=== PATIENT | male | born 1980 | race Hispanic/Latino ===

== ENCOUNTER 2023-01-25 06:17 | Emergency (ER) | payer MEDICAID ==
[~2023-01-25] VITALS: Ht 180.3 cm; Wt 120.2 kg
[2023-01-25] MEDS ORDERED: ONDANSETRON 4MG INJ IVP ONE ×2 (06:30→10:00)
[2023-01-25 06:45] LABS: BASOPHILS # (AUTO) 0.05 K/uL (0.00-0.20); BASOPHILS % (AUTO) 0.6 % (0.0-5.0); EOSINOPHILS # (AUTO) 0.13 K/uL (0.00-0.70); EOSINOPHILS % (AUTO) 1.5 % (0.0-8.0); IMMATURE GRANULOCYTE ABSOLUTE 0.03 K/uL (0-1); LYMPHOCYTES % (AUTO) 22.5 % (21.0-51.0); MEAN CORPUSCULAR HEMOGLOBIN 27.9 pg (27.0-33.0); MEAN CORPUSCULAR VOLUME 84.8 fL (79-99); MONOCYTES # (AUTO) 1.2 K/uL (0.1-1.0); MONOCYTES % (AUTO) 13.2 % (3.0-13.0); NEUTROPHILS # (AUTO) 5.4 K/uL (1.8-7.7); NEUTROPHILS % (AUTO) 61.9 % (40.0-77.0); PLATELET COUNT (AUTO) 286 K/uL (130-400); RED BLOOD CELL COUNT(AUTO) 5.19 MIL/uL (4.50-6.20); WHITE BLOOD COUNT (AUTO) 8.7 K/uL (4.8-10.8)
[2023-01-25 06:47] LABS: APPEARANCE,URINE CLEAR (CLEAR); BILIRUBIN,URINE NEGATIVE (NEGATIVE); COLOR,URINE LIGHT-YELLOW (YELLOW); GLUCOSE, URINE (UA) NEGATIVE (NEGATIVE); KETONES,URINE NEGATIVE (NEGATIVE); LEUKOCYTE ESTERASE ,URINE NEGATIVE Leu/uL (NEGATIVE); NITRATE,URINE NEGATIVE (NEGATIVE); OCCULT BLOOD,URINE NEGATIVE (NEGATIVE); PH,URINE 5.5 (5.0-8.0); PROTEIN,URINE 20 mg/dL (NEGATIVE); UROBILINOGEN,URINE 0.2 mg/dL (0.2-1.0)
[2023-01-25 07:06] LABS: ALBUMIN 3.6 g/dL (3.5-5.0); BILIRUBIN,TOTAL 0.4 mg/dL (0.2-1.0); CREATININE 1.1 mg/dL (0.5-1.5); POTASSIUM 3.8 mmol/L (3.5-5.1); TOTAL PROTEIN, SERUM 7.8 g/dL (6.0-8.3)
[2023-01-25 07:08] LABS: ADD UA MICROSCOPIC YES
[2023-01-25 07:12] LABS: MUCUS,URINE RARE LPF (None Seen); RBC,URINE 0-1 /HPF (0-1); WBC,URINE 0-1 /HPF (0-1)
[2023-01-25 07:34] LABS: B-TYPE NATRIURETIC PEPTIDE < 5 pg/mL (0-100)
[2023-01-25] MEDS ORDERED: IOHEXOL 350 MG/ML 100ML INFUS..BTL IV ONE (10:57)
[2023-01-25] MEDS ORDERED: ONDA4TAB10 PO (12:38)
[2023-01-25] MEDS ORDERED: DICY20TA2 PO (12:38)
[2023-01-25] MEDS ORDERED: IBUP-2070 PO (12:38)
[2023-01-25 12:56] VITALS: BP 133/65; PULSE 75; RESP 18; O2SAT 98
== END 2023-01-25 13:00 | disposition home or self-care (01) ==
LOC: EDH 06:17
DX: K80.50 Calculus of bile duct without cholangitis or cholecystitis without obstruction (principal); K80.20 Calculus of gallbladder without cholecystitis without obstruction; E78.00 Pure hypercholesterolemia, unspecified
CPT/HCPCS: 99285; 96374; 71270; 76705; 71045; 82550; 84484; 80053; 83880; 83690; 85025; 85378; 81001; 36415; 96376; 93005; J2405 ×2; Q9967

== ENCOUNTER 2023-10-15 09:10 | Emergency (ER) | payer MEDICAID ==
[~2023-10-15] VITALS: Ht 180.3 cm; Wt 113.4 kg
[~2023-10-15 09:10] MED LIST: DICY20TA2 PO; IBUP-2070 PO; ONDA-243 PO
[2023-10-15 09:28] VITALS: O2SAT 99
[2023-10-15 09:31] LABS: HEMATOCRIT 46.9 % (42-54); MEAN CORPUSCULAR HEMOGLOBIN 27.4 pg (27.0-33.0); MEAN CORPUSCULAR HGB CONC 32.6 g/dL (32.0-36.0); MEAN CORPUSCULAR VOLUME 83.9 fL (79-99); PLATELET COUNT (AUTO) 271 K/uL (130-400); RED BLOOD CELL COUNT(AUTO) 5.59 MIL/uL (4.50-6.20); RED CELL DISTRIBUTION WIDTH 14.4 % (11.0-15.5); WHITE BLOOD COUNT (AUTO) 7.8 K/uL (4.8-10.8)
[2023-10-15 09:38] LABS: APPEARANCE,URINE CLEAR (CLEAR); BILIRUBIN,URINE NEGATIVE (NEGATIVE); COLOR,URINE LIGHT-YELLOW (YELLOW); GLUCOSE, URINE (UA) NEGATIVE (NEGATIVE); KETONES,URINE NEGATIVE (NEGATIVE); LEUKOCYTE ESTERASE ,URINE NEGATIVE Leu/uL (NEGATIVE); NITRATE,URINE NEGATIVE (NEGATIVE); OCCULT BLOOD,URINE NEGATIVE (NEGATIVE); PH,URINE 5.5 (5.0-8.0); PROTEIN,URINE NEGATIVE (NEGATIVE); UROBILINOGEN,URINE 0.2 mg/dL (0.2-1.0)
[2023-10-15 09:42] LABS: ADD UA MICROSCOPIC NO
[2023-10-15] MEDS: ONDANSETRON 4MG INJ IVP ONE (09:52)
[2023-10-15] MEDS: KETOROLAC 30MG VIAL (30MG/ML) IVP ONE (09:52)
[2023-10-15 09:59] LABS: BASOPHILS # (AUTO) 0.05 K/uL (0.00-0.20); BASOPHILS % (AUTO) 0.6 % (0.0-5.0); EOSINOPHILS # (AUTO) 0.15 K/uL (0.00-0.70); EOSINOPHILS % (AUTO) 1.9 % (0.0-8.0); IMMATURE GRANULOCYTE ABSOLUTE 0.03 K/uL (0-1); LYMPHOCYTES # (AUTO) 2.4 K/uL (1.0-4.8); LYMPHOCYTES % (AUTO) 30.5 % (21.0-51.0); MONOCYTES # (AUTO) 0.8 K/uL (0.1-1.0); MONOCYTES % (AUTO) 9.4 % (3.0-13.0); NEUTROPHILS # (AUTO) 4.6 K/uL (1.8-7.7); NEUTROPHILS % (AUTO) 57.2 % (40.0-77.0)
[2023-10-15 10:12] LABS: ALANINE AMINOTRANSFERASE 25 U/L (12-78); ALBUMIN 3.6 g/dL (3.5-5.0); ASPARTATE AMINOTRANSFERASE 19 U/L (10-37); BILIRUBIN,DIRECT < 0.1 mg/dL (0.0-0.3)
[2023-10-15 10:24] LABS: BILIRUBIN,TOTAL 0.4 mg/dL (0.2-1.0); TOTAL PROTEIN, SERUM 7.6 g/dL (6.0-8.3)
[2023-10-15] MEDS ORDERED: HYOS0.124 SL (10:53)
[2023-10-15] MEDS ORDERED: ONDA-104 PO (10:53)
[2023-10-15 11:02] VITALS: BP 127/84; PULSE 80; RESP 16
== END 2023-10-15 11:14 | disposition home or self-care (01) ==
LOC: EDH 09:10
DX: K80.70 Calculus of gallbladder and bile duct without cholecystitis without obstruction (principal); K80.50 Calculus of bile duct without cholangitis or cholecystitis without obstruction; F32.A Depression, unspecified; F41.9 Anxiety disorder, unspecified; Z79.899 Other long term (current) drug therapy; Z90.5 Acquired absence of kidney; Z98.890 Other specified postprocedural states
CPT/HCPCS: 99285; 74176; 96374; 76705; 96375; 80076; 80048; 83690; 85025; 81003; 36415; 93005; J2405; J1885

== ENCOUNTER 2023-10-22 12:56 | Emergency (ER) | payer MEDICAID ==
[~2023-10-22] VITALS: Ht 180.3 cm; Wt 113.4 kg
[~2023-10-22 12:56] MED LIST changes: +HYOS0.124 SL; +ONDA-104 PO
[2023-10-22 13:21] LABS: APPEARANCE,URINE CLEAR (CLEAR); BILIRUBIN,URINE NEGATIVE (NEGATIVE); COLOR,URINE YELLOW (YELLOW); GLUCOSE, URINE (UA) NEGATIVE (NEGATIVE); KETONES,URINE 5 mg/dL (NEGATIVE); LEUKOCYTE ESTERASE ,URINE NEGATIVE Leu/uL (NEGATIVE); NITRATE,URINE NEGATIVE (NEGATIVE); OCCULT BLOOD,URINE NEGATIVE (NEGATIVE); PH,URINE 5.5 (5.0-8.0); PROTEIN,URINE 30 mg/dL (NEGATIVE); UROBILINOGEN,URINE 0.2 mg/dL (0.2-1.0)
[2023-10-22 13:22] LABS: ADD UA MICROSCOPIC YES
[2023-10-22 13:23] LABS: MUCUS,URINE RARE LPF (None Seen); RBC,URINE 0-1 /HPF (0-1); SQUAMOUS EPITHELIAL CELL,UR RARE /HPF (0-2)
[2023-10-22 13:34] LABS: BASOPHILS # (AUTO) 0.04 K/uL (0.00-0.20); BASOPHILS % (AUTO) 0.5 % (0.0-5.0); EOSINOPHILS # (AUTO) 0.14 K/uL (0.00-0.70); EOSINOPHILS % (AUTO) 1.8 % (0.0-8.0); IMMATURE GRANULOCYTE ABSOLUTE 0.03 K/uL (0-1); LYMPHOCYTES # (AUTO) 2.4 K/uL (1.0-4.8); LYMPHOCYTES % (AUTO) 30.8 % (21.0-51.0); MEAN CORPUSCULAR HGB CONC 32.8 g/dL (32.0-36.0); MEAN CORPUSCULAR VOLUME 82.5 fL (79-99); MONOCYTES # (AUTO) 0.9 K/uL (0.1-1.0); MONOCYTES % (AUTO) 11.2 % (3.0-13.0); NEUTROPHILS # (AUTO) 4.4 K/uL (1.8-7.7); NEUTROPHILS % (AUTO) 55.3 % (40.0-77.0); PLATELET COUNT (AUTO) 298 K/uL (130-400); RED CELL DISTRIBUTION WIDTH 14.4 % (11.0-15.5); WHITE BLOOD COUNT (AUTO) 7.9 K/uL (4.8-10.8)
[2023-10-22] MEDS: ONDANSETRON 4MG INJ IVP ONE (13:40)
[2023-10-22] MEDS: ketOROlac 30MG VIAL (30MG/ML) IVP ONE (13:40)
[2023-10-22 13:41] LABS: CREATININE 1.1 mg/dL (0.5-1.3); POTASSIUM 3.6 mmol/L (3.5-5.1)
[2023-10-22 13:52] LABS: ALBUMIN 3.9 g/dL (3.5-5.0)
[2023-10-22] MEDS: 0.9%NACL 1000ML 1,000 ML IV ONE (14:13)
[2023-10-22 17:26] VITALS: BP 126/80; PULSE 62; RESP 14; TEMP 98.4; O2SAT 99
== END 2023-10-22 17:27 | disposition home or self-care (01) ==
LOC: EDH 12:56
DX: K80.20 Calculus of gallbladder without cholecystitis without obstruction (principal); K80.50 Calculus of bile duct without cholangitis or cholecystitis without obstruction; R11.2 Nausea with vomiting, unspecified; Z79.899 Other long term (current) drug therapy; Z85.528 Personal history of other malignant neoplasm of kidney; Z90.5 Acquired absence of kidney
CPT/HCPCS: 99285; 96374; 70450; 76705; 96361; 96375; 80053; 83690; 85025; 82272; 81001; 36415; J7030; J2405; J1885; 82270

== ENCOUNTER 2024-02-25 09:45 | Day surgery (SDC) | payer MEDICAID ==
[2024-02-24 12:32] VITALS: BP 152/85; PULSE 71; RESP 18; TEMP 98.2
[2024-02-24 12:35] LABS: BASOPHILS # (AUTO) 0.05 K/uL (0.00-0.20); BASOPHILS % (AUTO) 0.6 % (0.0-5.0); EOSINOPHILS # (AUTO) 0.08 K/uL (0.00-0.70); EOSINOPHILS % (AUTO) 0.9 % (0.0-8.0); HEMATOCRIT 48.6 % (42-54); IMMATURE GRANULOCYTE ABSOLUTE 0.02 K/uL (0-1); LYMPHOCYTES # (AUTO) 1.7 K/uL (1.0-4.8); MEAN CORPUSCULAR HEMOGLOBIN 28.2 pg (27.0-33.0); MEAN CORPUSCULAR HGB CONC 33.1 g/dL (32.0-36.0); MEAN CORPUSCULAR VOLUME 85.1 fL (79-99); MONOCYTES # (AUTO) 0.8 K/uL (0.1-1.0); MONOCYTES % (AUTO) 8.8 % (3.0-13.0); NEUTROPHILS % (AUTO) 69.5 % (40.0-77.0); PLATELET COUNT (AUTO) 319 K/uL (130-400); RED BLOOD CELL COUNT(AUTO) 5.71 MIL/uL (4.50-6.20); RED CELL DISTRIBUTION WIDTH 14.4 % (11.0-15.5); WHITE BLOOD COUNT (AUTO) 8.6 K/uL (4.8-10.8)
--- NOTE | 2024-02-24 12:44 | EKG ---
[facility] Test Date: 2024-02-24 Test Time: 13:15:05 Pat Name: CECILIA JIMENEZ Department: [facility] Room: Gender: Procurement Technician: [id number] : 1980 Requested By: DRE PEDROZA Order Number: [id number] Reading MD: Ivania Lara Measurements Intervals [place] Rate: 64 P: 41 [place]: 159 QRS: 49 QRSD: 100 T: 40 QT: 388 QTc: 402 Interpretive Statements Sinus rhythm ST elev, probable normal early repol pattern Compared to ECG 01/08/2024 08:05:13 No significant changes Electronically Signed On 02-25-2024 08:09:28 OSTOMY NURSE by Ivania Lara Please click the below link to view image of tracing.
[2024-02-24 12:48] LABS: POTASSIUM 4.3 mmol/L (3.5-5.1)
[~2024-02-25] VITALS: Ht 180.3 cm; Wt 110.9 kg
[2024-02-25] VITALS (15 sets, daily range): BP systolic 147–178; BP diastolic 71–92; PULSE 60–70; RESP 13–18; TEMP 97–97.6
[~2024-02-25 09:45] MED LIST changes: +ARIP5TAB51 PO; -DICY20TA2 PO; +DICY20TA3 PO; +ESCI5TAB16 PO; -HYOS0.124 SL; -IBUP-2070 PO; +OMEP40CA21 PO; -ONDA-104 PO; -ONDA-243 PO
[2024-02-25] MEDS ORDERED: acetaMINOPHEN 100 ML ONE (10:02)
[2024-02-25] MEDS ORDERED: FAMOTIDINE 20MG VIAL IV ONE (10:02)
[2024-02-25] MEDS ORDERED: LIDOCAINE PF 100MG/5ML (2%) SYRINGE 5ML ONE (10:10)
[2024-02-25] MEDS ORDERED: FENTanyl CITRate PF 50 MCG/1 ML 2ML VIAL ONE (10:11)
[2024-02-25] MEDS ORDERED: rocuRONium bROMide 10MG/1ML 5ML VL ONE (10:11)
[2024-02-25] MEDS ORDERED: proPOFol 10 MG/ML 20ML VIAL IV ONE (10:11)
[2024-02-25] MEDS ORDERED: MIDAZOLAM HCL 1 MG/ML 2ML VIAL ONE (10:13)
[2024-02-25] MEDS: ceFAZolin SODIUM 1 GM VIAL ONE (10:30)
[2024-02-25] MEDS: ceFAZolin SODIUM 2 GM VIAL ONE (10:30)
[2024-02-25] MEDS ORDERED: GLYCOPYRROLATE 0.2 MG/ML 5 ML VIAL ONE (10:34)
[2024-02-25] MEDS ORDERED: NEOSTIGMINE METHYLSULFATE 1MG/ML IV ONE (10:34)
[2024-02-25] MEDS ORDERED: dexaMETHasone SOD PHOSPHATE 10MG/ML 1ML VIAL ONE (10:34)
[2024-02-25] MEDS ORDERED: ondanSETRON 4MG INJ ONE (10:34)
[2024-02-25] MEDS: BUPIvacaine/PF 0.25% 30ML VIAL IJ ONE (10:38)
[2024-02-25] MEDS: IOHEXOL-350 50ML VIAL IV ONE (10:38)
[2024-02-25] MEDS: LACTATED RINGERS 1000ML 1,000 ML IV ONE (10:40)
--- NOTE | 2024-02-25 11:38 | OP ---
Operative Note: DATE OF PROCEDURE: 02/25/24 SURGEON: DRE PEDROZA MD RENEWABLE ENERGY CONSULTANT: [Please review operative record] ANESTHESIA: [General and local] ANESTHESIOLOGIST/JUMPBASTING FACING BASTER: [Please review operative record] PREOPERATIVE DIAGNOSIS: [Symptomatic cholelithiasis] POSTOPERATIVE DIAGNOSIS: [Symptomatic cholelithiasis, chronic cholecystitis] SYNOPSIS: [Chronically inflamed gallbladder, intraoperative cholangiogram performed with no intraductal filling defects, good flow into duodenum, no bile duct dilatation, good visualization of hepatic radicles.] PROCEDURE: [Laparoscopic cholecystectomy, intraoperative cholangiogram] ESTIMATED BLOOD LOSS: [20 cc] INDICATIONS: [Patient is a 43-year-old male with chronic right upper quadrant postprandial pain, multiple ED visits because of these issue. Ultrasound showing cholelithiasis and chronic cholecystitis. Patient failed medical management with pain control and dietary changes. Recommendation was given for surgical repair with cholecystectomy and intraoperative cholangiogram. Risks, benefits, alternatives were discussed with the patient. Patient had all his que stions answered. Patient agreed to proceed with procedure] DESCRIPTION OF PROCEDURE: [After appropriate consent was obtained, the patient was brought into the operating room and placed in supine position on the operating table. SCDs were placed, preop antibiotics were given. Patient underwent induction of general anesthesia, endotracheal intubation. Patient was then prepped and draped in the usual sterile fashion. Time-out was performed. Through a left subcostal incision, Veress needle was inserted into the peritoneal cavity. Insufflation was allowed to 12 mmHg. Through a epigastric 5 mm incision, laparoscope and trocar were inserted into the peritoneal cavity using Optiview. Veress needle and this vicinity were examined with no signs of injury. Rest of my trocars were all placed under direct visualization. Patient was positioned on slight reverse Trendelenburg with a slight left tilt position. Upon evaluation of the gallbladder, it appeared chronically inflamed. Omental adhesions were taken down using hook electrocautery. The gallbladder fundus was grasped and retracted cephalad, infundibulum was grasped and retracted l aterally. Dissection of Calot's triangle was accomplished using a combination of blunt and hook electrocautery. Once two structures were then identified, the cystic duct was clipped one time as close to the gallbladder. Ductotomy was performed using sharp scissors. Cholangiocatheter was advanced into the lumen. Cholangiogram was obtained. This showed no intraductal filling defects good flow into the duodenum. There was no ductal dilatation, good visualization of hepatic radicals. After confirmation of the cystic duct, this was clipped 3 times proximally and sharply divided. Cystic artery was clipped 2 times proximally and one time distally. And sharply divided. Gallbladder was then dissected off the gallbladder fossa using hook electrocautery. Hemostasis was achieved with the same. Once gallbladder was removed, it was removed from the peritoneal cavity using Endo-Catch bag. Final inspection revealed adequate hemostasis, no concerns for leakage. The 12 mm port was closed with 0 Vicryl suture through a suture Passer. Counts were correct at the end of the case. Abdomen was allowed to deflate. All instruments were removed. Incisions were closed with 4-0 Monocryl. Dermabond was applied over the incisions. Patient tolerated the procedure well. Patient was transferred to recovery in good condition.] DRE PEDROZA MD Feb 25, 2024 11:38
--- NOTE | 2024-02-25 11:41 | DS ---
Discharge Summary Hospital Course Patient is a 43-year-old male who was admitted from the outpatient setting for elective laparoscopic cholecystectomy with intraoperative cholangiogram on 02/25/2024 due to symptomatic cholelithiasis and chronic cholecystitis. There were no issues during the procedure. Patient tolerated the procedure well. Patient currently with no complaints. Remains hemodynamically stable, afebrile. Aerating well on room air. Normal sinus rhythm. Abdomen is benign, incisions are clean dry and intact. Appropriately tender to palpation. He will continue to recover in recovery, will be cleared to discharge per anesthesia. He will advance diet as able, no lifting more than 20 lb for a month. Postop follow up already in place. Postop meds have been submitted. Return precautions given including fevers of 101.5 or higher, worsening abdominal pain, intractable nausea and vomiting. DRE PEDROZA MD Feb 25, 2024 11:41
[2024-02-25] MEDS: metoCLOPRAmide 10 MG/2 ML VIAL ONE (11:55)
[2024-02-25] MEDS: ondanSETRON 4MG INJ ONE (11:55)
[2024-02-25] MEDS: ketOROlac 30MG VIAL (30MG/ML) ONE (12:03)
[2024-02-25] MEDS: MEPERIDINE-PF 25 MG/ML SYG ONE (12:09)
--- NOTE | 2024-02-25 12:59 | HMCIMG ---
CHOLANGIO &/OR PANCRE INTRAOPE REASON: LAP OLI W/ IOC'S. COMPARISON: None TECHNIQUE: Intraoperative cholangiogram study was performed. FINDINGS: Please see procedure report by referring physician. IMPRESSION: Intraoperative films.
--- NOTE | 2024-02-25 13:00 | NUR ---
Full and complete discharge instructions given to Patient and both verbally and in writing. All questions answered. Voiced understanding to Surgical precautions and new Prescriptions. Dermabond x 4 intact. Denies c/o pain or issue. Patient denies c/o pain or discomfort. Voided moderate amount of clear yellow urine. Some nausea but stated feeling better now. PIV removed with catheter tip intact. W/C to POV with to home.
== END 2024-02-25 13:00 | disposition home or self-care (01) ==
LOC: DAH 09:45
PROVIDERS: ATTEND Surgery
DX: K80.10 Calculus of gallbladder with chronic cholecystitis without obstruction (principal); I10 Essential (primary) hypertension; E78.5 Hyperlipidemia, unspecified; E11.9 Type 2 diabetes mellitus without complications; E66.9 Obesity, unspecified; R93.2 Abnormal findings on diagnostic imaging of liver and biliary tract; K21.9 Gastro-esophageal reflux disease without esophagitis; Z68.35 Body mass index [BMI] 35.0-35.9, adult; Z79.899 Other long term (current) drug therapy
CPT/HCPCS: 80048; 85025; 86850; 86900; 86901; 36415; 93005; 47563; 88304; 74300; A6260; J1885; A4663; J7120 ×2; A4215 ×2; C1758; J3010; J0690 ×2; J1100; J0665; J3490 ×3; J2003; J2250; J2405 ×2; J2710; J2175; J2765; Q9967; C1769 ×3; A4649 ×2; A4930; C1760; A4223; A4222; A4221; A4600; S0028; J2704

== ENCOUNTER 2024-06-23 02:54 | Emergency (ER) | payer SELFPAY ==
[~2024-06-23] VITALS: Ht 180.3 cm; Wt 116.6 kg
[~2024-06-23 02:54] MED LIST changes: -DICY20TA3 PO
--- NOTE | 2024-06-23 03:14 | ERN ---
General Chief Complaint: Headache Stated Complaint: C/O PAIN TO HEAD Time Seen by MD: 03:09 Source: patient History of Present Illness Initial Comments Woke up from sleep with a severe headache centered on his right temporal frontal region. He is status post nephrectomy and said that his oncologist has told him he can not take either Tylenol or Motrin one of the other he is not sure. He states he has recently started to drink alcohol. He has no other symptoms. No chest pain no shortness of breath no nausea no vomiting no upper respiratory tract infection. He did mention a little diarrhea. Allergies: Coded Allergies: No Known Allergies (Unverified Allergy, Unknown, 01/25/23) Home Meds Reported Medications Omeprazole (Omeprazole) 40 Mg Capsule.dr, 40 MG PO DAILY, CAP 02/24/24 Escitalopram Oxalate (Escitalopram Oxalate) 5 Mg Tablet, 5 MG PO DAILY, TAB 02/24/24 Aripiprazole (Aripiprazole) 5 Mg Tablet, 5 MG PO DAILY, TAB 02/24/24 Past Medical History Past Medical History: Anxiety, Other Medical History Other: LEFT KIDNEY CA (IN REMISSION) Past Surgical History: Cholecystectomy, Other Surgical History Other: LEFT NEPHRECTOMY Constitutional: (-) chills, (-) diaphoresis, (-) fever, (-) malaise, (-) weakness, (-) other documentation EENTM: (-) eye pain, (-) blurred vision, (-) tearing, (-) double vision, (-) ear pain, (-) ear discharge, (-) nose pain, (-) nose congestion, (-) throat pain, (-) Throat swelling, (-) mouth pain, (-) tooth pain, (-) mouth swelling, (-) other documentation Respiratory: (-) cough, (-) orthopnea, (-) short of breath, (-) stridor, (-) wheezing, (-) other documentation Cardiovascular: (-) chest pain, (-) edema, (-) palpitations, (-) syncope, (-) dyspnea on exertion, (-) other documentation Gastrointestinal/Abdominal: (+) diarrhea Musculoskeletal: (-) Neck pain, (-) back pain, (-) Flank Pain, (-) joint pain, (-) joint swelling, (-) muscle pain, (-) muscle stiffness, (-) gout, (-) other documentation Neuro: (-) altered mental status, (-) headache, (-) syncope, (-) paralysis, (-) numbness, (-) seizure, (-) pre-existing deficit, (-) tremors, (-) weakness, (-) dizziness, (-) slurred speech, (-) vertigo, (-) other documentation Physical Exam General Appearance: (+) mild distress Orientation: (+) oriented x 3 Head/Face Trauma: No Eye: bilateral eye normal inspection, bilateral eye PERRL, bilateral eye EOMI Ear, Nose, Throat: (+) hearing grossly normal, (+) normal ENT inspection, (+) normal pharynx Neck: (+) normal inspection, (+) supple, (+) full range of motion Respiratory: (+) well ventilated Heart: (+) regular, (+) no gallop Vascular: (+) no edema Gastrointestinal: (+) soft, (+) non-tender, (+) bowel sound present Results Laboratory and Microbiology Lab and Micro Result Laboratory Tests Test 06/23/24 03:22 White Blood Count 7.6 K/uL (4.8-10.8) Red Blood Count 5.13 MIL/uL (4.50-6.20) Hemoglobin 14.4 g/dL (14.0-18.0) Hematocrit 43.0 % (42-54) Mean Corpuscular Volume 83.8 fL (79-99) Mean Corpuscular Hemoglobin 28.1 pg (27.0-33.0) Mean Corpuscular Hemoglobin Concent 33.5 g/dL (32.0-36.0) Red Cell Distribution Width 13.9 % (11.0-15.5) Platelet Count 240 K/uL (130-400) Mean Platelet Volume 9.2 fL (7.5-10.5) Immature Granulocyte % (Auto) 0.3 % (0-1) Neutrophils (%) (Auto) 55.5 % (40.0-77.0) Lymphocytes (%) (Auto) 31.2 % (21.0-51.0) Monocytes (%) (Auto) 10.1 % (3.0-13.0) Eosinophils (%) (Auto) 2.1 % (0.0-8.0) Basophils (%) (Auto) 0.8 % (0.0-5.0) Neutrophils # (Auto) 4.2 K/uL (1.8-7.7) Lymphocytes # (Auto) 2.4 K/uL (1.0-4.8) Monocytes # (Auto) 0.8 K/uL (0.1-1.0) Eosinophils # (Auto) 0.16 K/uL (0.00-0.70) Basophils # (Auto) 0.06 K/uL (0.00-0.20) Absolute Immature Granulocyte (auto 0.02 K/uL (0-1) Nucleated Red Blood Cells 0.0 % (0.0-0.19) Sodium Level 143 mmol/L (136-145) Potassium Level 3.6 mmol/L (3.5-5.1) Chloride Level 109 mmol/L (101-111) Carbon Dioxide Level 31 mmol/L (21-32) Blood Urea Nitrogen 14 mg/dL (7-18) Creatinine 0.9 mg/dL (0.5-1.3) Glomerular Filtration Rate Calc 109 mL/min (>90) Random Glucose 106 mg/dL (70-105) H Total Calcium 8.0 mg/dL (8.5-10.1) L MDM 44-year-old male woke up with a headache pointing to his frontotemporal area. I will give him some extra strength Tylenol some IV fluids and some Flexeril to see if those relieve his pain. cbc, bmp as well. The patient has been sleeping comfortably since he came to the emergency room. His chemistry panel and CBC were normal. I feel no need to do a CT scan on this patient. He has no neurologic deficits. The way he describes a headache in the way he demonstrates it by rubbing his head is classic for either a dehydration headache or a tension headache. Patient says he feels better and would like to go home. ED Course Orders Procedure Category Date Status Time Cyclobenzaprine Hcl PHA 06/23/24 Complete (Cyclobenzaprine Hcl 03:30 Lactated Ringers PHA 06/23/24 Complete 1000ml (Lactated 03:14 Basic Metabolic Panel LAB 06/23/24 Complete 03:14 Cbc With Differential LAB 06/23/24 Complete 03:14 Acetaminophen 325 Tab PHA 06/23/24 Complete (Tylenol 325mg Tab 04:00 Current Medications Medications (Trade) Dose Ordered Sig/Candy Route PRN Reason Start Time Stop Time Status Last Admin Dose Admin Acetaminophen (TYLenol 325MG TAB) 650 mg ONCE ONCE PO 06/23/24 04:00 06/23/24 04:01 DC 06/23/24 03:52 Cyclobenzaprine HCl (Cyclobenzaprine HCl) 10 mg ONCE ONCE PO 06/23/24 03:30 06/23/24 03:31 DC 06/23/24 03:32 Lactated Ringer's (Lactated Ringers 1000ml) 1,000 ml BOLUS STAT IV 06/23/24 03:14 06/23/24 03:28 DC 06/23/24 03:32 Vital Signs Date Time Temp Pulse Resp B/P (MAP) Pulse Ox O2 Delivery O2 Flow Rate FiO2 06/23/24 02:56 98.2 68 20 151/93 97 Room Air DX & DISP Disposition: Discharge Departure Impression: Primary Impression: Headache Condition: Stable Additional Instructions: Stay well hydrated avoid caffeine. If you continue to have headaches please contact your primary care provider. Referrals: SELF,REFERRAL (PCP) SUBHASH BAUTISTA MD June 23, 2024 03:13
[2024-06-23 03:32] LABS: BASOPHILS # (AUTO) 0.06 K/uL (0.00-0.20); BASOPHILS % (AUTO) 0.8 % (0.0-5.0); EOSINOPHILS # (AUTO) 0.16 K/uL (0.00-0.70); EOSINOPHILS % (AUTO) 2.1 % (0.0-8.0); IMMATURE GRANULOCYTE ABSOLUTE 0.02 K/uL (0-1); LYMPHOCYTES # (AUTO) 2.4 K/uL (1.0-4.8); LYMPHOCYTES % (AUTO) 31.2 % (21.0-51.0); MEAN CORPUSCULAR HEMOGLOBIN 28.1 pg (27.0-33.0); MEAN CORPUSCULAR HGB CONC 33.5 g/dL (32.0-36.0); MEAN CORPUSCULAR VOLUME 83.8 fL (79-99); MONOCYTES # (AUTO) 0.8 K/uL (0.1-1.0); MONOCYTES % (AUTO) 10.1 % (3.0-13.0); NEUTROPHILS # (AUTO) 4.2 K/uL (1.8-7.7); NEUTROPHILS % (AUTO) 55.5 % (40.0-77.0); PLATELET COUNT (AUTO) 240 K/uL (130-400); RED BLOOD CELL COUNT(AUTO) 5.13 MIL/uL (4.50-6.20); RED CELL DISTRIBUTION WIDTH 13.9 % (11.0-15.5); WHITE BLOOD COUNT (AUTO) 7.6 K/uL (4.8-10.8)
[2024-06-23] MEDS: LACTATED RINGERS 1000ML IV STA (03:32)
[2024-06-23] MEDS: CYCLOBENZAPRINE HCL 10 MG TABLET PO ONE (03:32)
[2024-06-23 03:35] LABS: CREATININE 0.9 mg/dL (0.5-1.3); POTASSIUM 3.6 mmol/L (3.5-5.1)
[2024-06-23] MEDS: acetaMINOPHEN 325 MG TAB PO ONE (03:52)
[2024-06-23 05:48] VITALS: BP 142/85; PULSE 65; RESP 17; TEMP 98.6; O2SAT 98
== END 2024-06-23 05:50 | disposition home or self-care (01) ==
LOC: EDH 02:54
DX: R51.9 Headache, unspecified (principal); F41.9 Anxiety disorder, unspecified; Z79.899 Other long term (current) drug therapy; Z85.528 Personal history of other malignant neoplasm of kidney; Z90.49 Acquired absence of other specified parts of digestive tract; Z90.5 Acquired absence of kidney
CPT/HCPCS: 99283; 80048; 85025; 36415; J7120

== ENCOUNTER 2024-07-30 16:09 | Emergency (ER) | payer SELFPAY ==
[~2024-07-30] VITALS: Ht 180.3 cm; Wt 115.7 kg
[2024-07-30 16:13] VITALS: BP 150/84; PULSE 84; RESP 18; TEMP 98.2
--- NOTE | 2024-07-30 16:18 | ERN ---
ED Note History of Present Illness Stated Complaint: LEFT KNEE PAIN Chief Complaint: Knee Injury/Swelling Time Seen by MD: 16:10 Dictation: PATIENT IS A 44-YEAR-OLD MALE COMING IN TODAY WITH COMPLAINTS OF NON TRAUMA LEFT KNEE PAIN HE HAS HAD FOR SEVERAL DAYS NO FEVER NO CHILLS. HE DENIES ANY HISTORY OF TRAUMA OR PRIOR SURGERIES. STATES HE WENT TO GET A MASSAGE YESTERDAY ON HIS RIGHT KNEE AND THEY MASSAGE THE LEFT KNEE TWO AND IT NOW THE PAIN IS WORSE. HE HAS NO PRIMARY CARE DOCTOR. Allergies: Coded Allergies: No Known Allergies (Unverified Allergy, Unknown, 01/25/23) Home Meds Reported Medications Omeprazole (Omeprazole) 40 Mg Capsule.dr, 40 MG PO DAILY, CAP 02/24/24 Escitalopram Oxalate (Escitalopram Oxalate) 5 Mg Tablet, 5 MG PO DAILY, TAB 02/24/24 Aripiprazole (Aripiprazole) 5 Mg Tablet, 5 MG PO DAILY, TAB 02/24/24 Past Medical History Past Medical History: Anxiety, Other Additional Past Medical Hx: LEFT KIDNEY CA (IN REMISSION) Surgical History: Cholecystectomy, Other Surgical History Other: LEFT NEPHRECTOMY RN Note Reviewed/Agreed w/PFSH: Yes Review of System Dictation CONSTITUTIONAL: NEGATIVE EXCEPT FOR HPI HEAD/FACE: NEGATIVE EXCEPT FOR HPI EENT: NEGATIVE EXCEPT FOR HPI RESPIRATORY: NEGATIVE EXCEPT FOR HPI GASTROINTESTINAL/ABDOMINAL: NEGATIVE EXCEPT FOR HPI GENITOURINARY: NEGATIVE EXCEPT FOR HPI MUSCULOSKELETAL: NEGATIVE EXCEPT FOR HPI LEFT KNEE PAIN INTEGUMENTARY: NEGATIVE EXCEPT FOR HPI NEUROLOGICAL/PSYCH: NEGATIVE EXCEPT FOR HPI HEMATOLOGIC/LYMPHATIC: NEGATIVE EXCEPT FOR HPI ALL SYSTEMS NEGATIVE, EXCEPT NOTED ABOVE. 13 POINT REVIEW OF SYSTEMS ASSESSED AND ALL NEGATIVE EXCEPT FOR ABOVE. Initial Vital Sign VS Vital Signs Date Time Temp Pulse Resp B/P (MAP) Pulse Ox O2 Delivery O2 Flow Rate FiO2 07/30/24 16:13 98.2 84 18 150/84 98 Room Air 0 Physical Exam Dictation VITAL SIGNS REVIEWED GENERAL APPEARANCE: ALERT, ORIENTED X 3, MODERATE ACUTE DISTRESS, WELL DEVELOPED, NOURISHED. HEAD AND FACE: NON-TRAUMATIC. EYES: PERRL, PINK CONJUNCTIVAS, EYELID NO TRAUMA, ANTERIOR CHAMBER WITH ARCUS SENILIS. EARS: PINNAS INTACT AND NO SIGNS OF TRAUMA OR ERYTHEMA EAR CANALS CLEAR AND NO DISCHARGE TM NO ERYTHEMA NOSE: NO DISCHARGE, NO BLEEDING. OROPHARYNX: MOUTH NORMAL, TONGUE PINK, PHARYNX CLEAR,NO ERYTHEMA, TONSILS NO EXUDATES, NO ABSCESSES NOTED, MUCOUS MEMBRANE MOIST NECK: SUPPLE, NON-TENDER, NO THYROMEGALY, NO MASSES, NO JVD, NO BRUITS BREAST:DEFERRED CHEST:NO TENDERNESS, NO CREPITUS, NO PARADOXICAL MOVEMENT, NO RETRACTIONS LUNGS:CLEAR, WELL-VENTILATED, SYMMETRIC, NO RALES, NO WHEEZING, NO RHONCHI, NO STRIDOR, GOOD BREATH SOUNDS BILATERALLY HEART: REGULAR RATE, REGULAR RHYTHM, NO MURMUR, NO GALLOPS VASCULAR: NO PERIPHERAL EDEMA, ABDOMEN: SOFT, POSITIVE BOWEL SOUNDS, NONDISTENDED, NO GUARDING, NONTENDER, NO REBOUND, NO MASSES NO HEPATOMEGALY, NO SPLENOMEGALY, NO VACA'S SIGN, NO HERNIAS. RECTAL: DEFERRED GENITAL: DEFERRED NEUROLOGICAL: NORMAL SPEECH, MOTOR FUNCTION INTACT, SENSORY FUNCTION INTACT MUSCULOSKELETAL: NECK NONTENDER, FULL RANGE OF MOTION, BACK NONTENDER, FULL RANGE OF MOTION, EXTREMITIES: DIFFUSE LEFT KNEE TENDERNESS. NO EFFUSION DECREASED RANGE OF MOTION SECONDARY TO PAIN. NO CREPITATION SKIN: COLOR PINK, DRY, NO TURGOR, NO RASH, NO LACERATIONS, NO ABRASIONS, NO CONTUSIONS. LYMPHATIC: DEFERRED Results (Laboratory/Radiology) Laboratory/Radiology Left knee x-ray demonstrates proximal tibial lesions This information was provided to patient. Labs Reviewed?: Yes ED Course ED Course Orders Procedure Category Date Status Time Knee 3vws Lt RAD 07/30/24 Taken 16:14 Ibuprofen 800 Mg Tab PHA 07/30/24 Complete (Motrin) 16:30 Current Medications Medications (Trade) Dose Ordered Sig/Candy Route PRN Reason Start Time Stop Time Status Last Admin Dose Admin Ibuprofen (moTRIN) 800 mg ONCE ONCE PO 07/30/24 16:30 07/30/24 16:31 DC 07/30/24 16:29 Vital Signs Date Time Temp Pulse Resp B/P (MAP) Pulse Ox O2 Delivery O2 Flow Rate FiO2 07/30/24 16:13 98.2 84 18 150/84 98 Room Air 0 Medical Decision Making [facility] 1645/medical decision-making based on pain management and x-ray of left knee. Patient states he has a history of prior renal cancer and was treated Patient of Dr. Lam We will be given the name of Dr. Martinez and a have him follow up DX & DISP Disposition: Discharge Departure Impression: Primary Impression: Acute pain of left knee Condition: Stable Scripts Ibuprofen (Ibuprofen 800 mg Tab) 800 Mg Tab 800 MG PO Q8H PRN for fever or pain, #30 TAB 0 Refills Prov: DESTIN BAIN NP 07/30/24 Additional Instructions: Follow-up with primary care provider in 1 to 2 days. Take medications as directed here in the emergency room. Okay to continue home medications unless otherwise discussed during your visit in the emergency room today. Return to your nearest emergency room if symptoms worsen or if there is no improvement. Call [phone] if you need immediate assistance. Take Tylenol or Motrin [id number] as needed and if no contraindications are present. Increase oral hydration. A wound culture or urine culture was ordered here in the emergency room department please follow-up with primary care provider and advise them to get repeat ports from our facility. If you had any Damian wrap/splints that were applied here, please do not remove them until you see your primary care or specialty. Activity as tolerated. Take ibuprofen as needed for pain. Follow up with Orthopedics in the next 1-2 days Referrals: SELF,REFERRAL (PCP) CARLOS MARTINEZ MD Time of Disposition: 16:46 I have reviewed the case, and I agree with, Diagnosis and Plan DESTIN BAIN NP Jul 30, 2024 16:18
[2024-07-30] MEDS: ibuPROFEN 800 MG TAB PO ONE (16:29)
[2024-07-30] MEDS ORDERED: IBUP-2077 PO (16:47)
--- NOTE | 2024-07-30 16:50 | HMCIMG ---
KNEE 3VWS LT HISTORY: Trauma COMPARISON: None TECHNIQUE: 3 images of the left knee were obtained. FINDINGS: There is no acute displaced fracture or dislocation. Sclerotic oval-shaped density is seen in the metaphyseal portion of the proximal tibia. Degenerative changes are seen. IMPRESSION: 1. Findings as described above.
== END 2024-07-30 17:07 | disposition home or self-care (01) ==
LOC: EDH 16:09
DX: M25.562 Pain in left knee (principal); F41.9 Anxiety disorder, unspecified; Z79.899 Other long term (current) drug therapy; Z85.528 Personal history of other malignant neoplasm of kidney; Z90.49 Acquired absence of other specified parts of digestive tract; Z90.5 Acquired absence of kidney
CPT/HCPCS: 73562; 99283

== ENCOUNTER 2024-08-06 09:41 | Emergency (ER) | payer SELFPAY ==
[~2024-08-06] VITALS: Ht 180.3 cm; Wt 102.1 kg
[~2024-08-06 09:41] MED LIST changes: +IBUP-2077 PO
--- NOTE | 2024-08-06 10:51 | ERN ---
ED Note History of Present Illness Stated Complaint: LEFT KNEE PAIN CLEARNACE Chief Complaint: Knee Injury/Swelling Time Seen by MD: 10:28 Time Seen by Midlevel: 10:30 Dictation: 44-year-old male with a history of renal cell carcinoma coming in complaints of left knee pain. Patient states he was already seen here couple of days ago the x-ray showed something abnormal and was told to follow up with his oncologist. Patient however states he has not been able to follow up with the oncologist would like some pain management and some extended days off for work. No new injury. 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 Reported Medications Omeprazole (Omeprazole) 40 Mg Capsule.dr, 40 MG PO DAILY, CAP 02/24/24 Escitalopram Oxalate (Escitalopram Oxalate) 5 Mg Tablet, 5 MG PO DAILY, TAB 02/24/24 Aripiprazole (Aripiprazole) 5 Mg Tablet, 5 MG PO DAILY, TAB 02/24/24 Past Medical History Past Medical History: Anemia Additional Past Medical Hx: LEFT KIDNEY CA (IN REMISSION) Surgical History: Cholecystectomy Surgical History Other: LT KIDNEY Review of System Dictation Constitutional: Negative for fever,chills, and weight loss Eyes: Negative for injury, pain,redness, and discharge ENT: Negative for injury,pain or swelling Cardiovascular: Negative for chest pain, palpitations, and edema Respiratory: Negative for shortness of breath, cough, and wheezing, Abdomen/GI: Negative for abdominal pain, nausea, vomiting, diarrhea, and constipation Back: Negative for injury and pain : Negative for injury, bleeding and discharge MS/Extremity: Negative for injury and deformity Skin: Negative for rash, and discoloration Neuro: Negative for headache, weakness, numbness, tingling, and seizure Psych: Negative for suicide ideation, homicidal ideation, and hallucinations Review of Systems: was completed Initial Vital Sign VS Vital Signs Date Time Temp Pulse Resp B/P (MAP) Pulse Ox O2 Delivery O2 Flow Rate FiO2 08/06/24 09:44 98.6 79 18 99 0 08/06/24 11:27 135/79 Room Air* 21 Physical Exam Dictation General: awake, alert, NAD Head/Face: Normocephalic, atraumatic Eyes: PERRL, EOMI, vision at baseline ENT: oral cavity clear, TMs clear, no signs of infection Neck: Trachea midline, supple, no nuchal rigidity Cardiovascular: RRR, normal S1/S2, No MRGs, no JVD Respiratory: CTAB, no respiratory distress, No rales or wheezes Abdomen: Soft, non-tender, non-distended, normal bowel sounds, no guarding or rebound. Skin: Warm, dry, normal turgor, no rash MS/Extremity: Pulses equal, no cyanosis, neurovascular intact, FROM Neuro: COAx4, GCS 15, strength 5/5, CN 2-12 intact, normal cerebellar exam, normal gait, Psych: Normal behavior, mood, and affect normal ED Course ED Course Orders Procedure Category Date Status Time Hydrocodone/Apap PHA 08/06/24 Complete 5/325 (Moore 5/325mg) 10:42 Ketorolac PHA 08/06/24 Complete Tromethamine 15mg/Ml 10:42 Current Medications Medications (Trade) Dose Ordered Sig/Candy Route PRN Reason Start Time Stop Time Status Last Admin Dose Admin Acetaminophen/ Hydrocodone Bitart (NORco 5/325MG) 1 tab ONCE STAT PO 08/06/24 10:42 08/06/24 10:48 DC 08/06/24 11:34 Ketorolac Tromethamine (toRADol) 15 mg ONCE STAT IM 08/06/24 10:42 08/06/24 10:48 DC 08/06/24 11:34 Vital Signs Date Time Temp Pulse Resp B/P (MAP) Pulse Ox O2 Delivery O2 Flow Rate FiO2 08/06/24 11:27 97.9 74 18 135/79 98 Room Air* 0 21 08/06/24 09:44 98.6 79 18 99 0 Medical Decision Making MDM MDM: 44-year-old male with a history of renal cell carcinoma coming in complaints of left knee pain. Patient states he was already seen here couple of days ago the x-ray showed something abnormal and was told to follow up with his oncologist. Patient however states he has not been able to follow up with the oncologist would like some pain management and some extended days off for work. No new injury. Patient received pain medications in the hospital. Discussed with the patient that I can not clear him that he needs to follow up with PCP he needs to follow up with the oncologist for further imaging. Patient verbalized understanding, answered all questions. Differential diagnosis: Pain management, knee pain, Rationale: Tests considered and ordered secondary to shared decision making include: Previous outside records reviewed: Old ER visits. Risk of complication and/or morbidity or mortality of patient management: None Medications-Per medication reconciliation Need for hospitalization: Patient does not meet criteria for hospitalization. Need for emergency major/minor surgery: No There are no social concerns with this patient. Prescription drug management Prescriptions will include symptomatic care Patient's prior external medical records from other ER visits were reviewed by me as indicated. Prior testing and results from previous visits were reviewed. Prior tests were taken into account with medical decision making and resource utilization, independent historian/historians were used to obtain complete medical history. I independently interpreted the test that were performed, results were reviewed by me and considered findings on radiology if ordered. Medical management and examination interpretation discussions were had by me with other qualified healthcare professionals as indicated for the patient's care. DX & DISP Disposition: Discharge Departure Impression: Primary Impression: Acute pain of left knee Additional Impression: Abnormal x-ray of knee Condition: Stable Additional Instructions: PLEASE FOLLOW UP WITH YOUR ONCOLOGIST. YOUR XRAY SHOWS A SCLEROTIC OVAL SHAPED DENSITY IN THE PROXIMAL TIBIA. DUE TO YOUR CANCER HISTORY YOU NEED TO BE SEEN BY YOUR SPECIALIST THIS COULD BE A CANCEROUS. Referrals: SELF,REFERRAL (PCP) Time of Disposition: 10:51 I have reviewed the case, and I agree with, Diagnosis and Plan VERITO OLIVA NP Aug 06, 2024 10:51 BROOKE ALFARO DO Aug 09, 2024 04:10
[2024-08-06 11:27] VITALS: BP 135/79; PULSE 74; RESP 18; TEMP 97.8; O2SAT 98
[2024-08-06] MEDS: ketOROlac 15MG/ML VIAL (15MG/ML) IM STA (11:34)
[2024-08-06] MEDS: HYDROcodone/APAP 5/325 1 TAB TABLET PO STA (11:34)
== END 2024-08-06 11:41 | disposition home or self-care (01) ==
LOC: EDH 09:41
DX: M25.562 Pain in left knee (principal); Z79.899 Other long term (current) drug therapy; Z85.528 Personal history of other malignant neoplasm of kidney; Z90.49 Acquired absence of other specified parts of digestive tract
CPT/HCPCS: 99283; 96372; J1885

== ENCOUNTER 2024-11-10 11:23 | Emergency (ER) | payer BC ==
[~2024-11-10] VITALS: Ht 180.3 cm; Wt 111.1 kg
--- NOTE | 2024-11-10 11:33 | ERN ---
ED Note History of Present Illness Stated Complaint: HEADACHE Chief Complaint: Headache Time Seen by MD: 11:25 Time Seen by Midlevel: 11:28 Dictation: 44-year-old male with previous history of kidney cancer coming in with complaints of a headache. Patient states he woke up with a headache also complaining of right eye pain with one episode of vomiting, photophobia and phonophobia. Patient states this is only she will bring him has a has a headache before. Denies any unilateral weakness, numbness or tingling. Denies any dizziness. 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 Reported Medications Omeprazole (Omeprazole) 40 Mg Capsule.dr, 40 MG PO DAILY, CAP 02/24/24 Escitalopram Oxalate (Escitalopram Oxalate) 5 Mg Tablet, 5 MG PO DAILY, TAB 02/24/24 Aripiprazole (Aripiprazole) 5 Mg Tablet, 5 MG PO DAILY, TAB 02/24/24 Past Medical History Past Medical History: Anemia, Other Additional Past Medical Hx: LEFT KIDNEY CA (IN REMISSION) Surgical History: Cholecystectomy Surgical History Other: LT KIDNEY Review of System Dictation Constitutional: Negative for fever,chills, and weight loss Eyes: Negative for injury, pain,redness, and discharge ENT: Negative for injury,pain or swelling Cardiovascular: Negative for chest pain, palpitations, and edema Respiratory: Negative for shortness of breath, cough, and wheezing, Abdomen/GI: Negative for abdominal pain, nausea, vomiting, diarrhea, and constipation Back: Negative for injury and pain : Negative for injury, bleeding and discharge MS/Extremity: Negative for injury and deformity Skin: Negative for rash, and discoloration Neuro: Positive for headache, no weakness, no numbness, no tingling, and no seizure Psych: Negative for suicide ideation, homicidal ideation, and hallucinations Review of Systems: was completed Initial Vital Sign VS Vital Signs Date Time Temp Pulse Resp B/P (MAP) Pulse Ox O2 Delivery O2 Flow Rate FiO2 11/10/24 11:24 97.9 62 16 168/108 98 Room Air 11/10/24 13:27 0 21 Physical Exam Dictation General: awake, alert, NAD Head/Face: Normocephalic, atraumatic Eyes: PERRL, EOMI, vision at baseline ENT: oral cavity clear, TMs clear, no signs of infection Neck: Trachea midline, supple, no nuchal rigidity Cardiovascular: RRR, normal S1/S2, No MRGs, no JVD Respiratory: CTAB, no respiratory distress, No rales or wheezes Abdomen: Soft, non-tender, non-distended, normal bowel sounds, no guarding or rebound. Skin: Warm, dry, normal turgor, no rash MS/Extremity: Pulses equal, no cyanosis, neurovascular intact, FROM Neuro: COAx4, GCS 15, strength 5/5, CN 2-12 intact, normal cerebellar exam, normal gait, Psych: Normal behavior, mood, and affect normal ED Course ED Course Orders Procedure Category Date Status Time Ct Head/Brain W/O CT 11/10/24 Resulted Contrast 11:32 0.9%Nacl 1000ml (Ns PHA 11/10/24 Complete 1000ml) 12:54 Ondansetron 4mg Inj PHA 11/10/24 Complete (Zofran 4mg Inj) 13:00 Ketorolac PHA 11/10/24 Complete Tromethamine 15mg/Ml 13:00 Metoclopramide 10 PHA 11/10/24 Complete Mg/2 Ml Vial (Reglan 1 13:00 Diphenhydramine Hcl PHA 11/10/24 Complete (Benadryl Inj) 13:00 Current Medications Medications (Trade) Dose Ordered Sig/Candy Route PRN Reason Start Time Stop Time Status Last Admin Dose Admin Diphenhydramine HCl (BENAdryl INJ) 25 mg ONCE ONCE IV 11/10/24 13:00 11/10/24 13:01 DC 11/10/24 13:54 Ketorolac Tromethamine (toRADol) 15 mg ONCE ONCE IV 11/10/24 13:00 11/10/24 13:01 DC 11/10/24 13:54 Metoclopramide HCl (regLAN 10MG IV) 10 mg ONCE ONCE IVP 11/10/24 13:00 11/10/24 13:01 DC 11/10/24 13:54 Ondansetron HCl (zoFRAN 4MG INJ) 4 mg ONCE ONCE IVP 11/10/24 13:00 11/10/24 13:01 DC 11/10/24 13:54 Sodium Chloride 1,000 ml @ 1,000 mls/hr Q1H STAT IV 11/10/24 12:54 11/10/24 13:53 DC 11/10/24 13:55 Vital Signs Date Time Temp Pulse Resp B/P (MAP) Pulse Ox O2 Delivery O2 Flow Rate FiO2 11/10/24 13:27 98.2 56 17 122/90 99 Room Air* 0 21 11/10/24 11:24 97.9 62 16 168/108 98 Room Air Medical Decision Making MDM MDM: 44-year-old male with previous history of kidney cancer coming in with comp laints of a headache. Patient states he woke up with a headache also complaining of right eye pain with one episode of vomiting, photophobia and phonophobia. Patient states this is only she will bring him has a has a headache before. Denies any unilateral weakness, numbness or tingling. Denies any dizziness. CT scan of the head is negative. After migraine cocktail patient feels much better. Discussed with the patient that he needs to follow up outpatient with PCP in the hospital as needed. Differential diagnosis: CVA, ICH, cholesterol headache, migraine Rationale: Tests considered and ordered secondary to shared decision making include: Previous outside records reviewed: Old ER visits. Risk of complication and/or morbidity or mortality of patient management: None Medications-Per medication reconciliation Need for hospitalization: Patient does not meet criteria for hospitalization. Need for emergency major/minor surgery: No There are no social concerns with this patient. Prescription drug management Prescriptions will include symptomatic care Patient's prior external medical records from other ER visits were reviewed by me as indicated. Prior testing and results from previous visits were reviewed. Prior tests were taken into account with medical decision making and resource utilization, independent historian/historians were used to obtain complete medical history. I independently interpreted the test that were performed, results were reviewed by me and considered findings on radiology if ordered. Medical management and examination interpretation discussions were had by me with other qualified healthcare professionals as indicated for the patient's care. DX & DISP Disposition: Discharge Departure Impression: Primary Impression: Headache Condition: Stable Additional Instructions: Please take Tylenol or Motrin [id number] for pain control. Follow up with your PCP in 1-2 days. Referrals: SELF,REFERRAL (PCP) Time of Disposition: 14:13 I have reviewed the case, and I agree with, Diagnosis and Plan VERITO OLIVA NP Nov 10, 2024 11:33 BROOKE ALFARO DO Nov 10, 2024 17:48
--- NOTE | 2024-11-10 12:45 | HMCIMG ---
EXAM: CT Head Without IV contrast. CLINICAL HISTORY: severe cordon TECHNIQUE: Axial computed tomography images of the head/brain without intravenous contrast. COMPARISON: Study dated 10/22/2023 FINDINGS: BRAIN: No evidence of acute hemorrhage. No mass lesion. No CT evidence for acute territorial infarct. No midline shift or extra-axial collections. VENTRICLES: No hydrocephalus. ORBITS: The orbits are unremarkable. SINUSES AND MASTOIDS: The paranasal sinuses and mastoid air cells are clear. BONES: No fracture. SOFT TISSUES: Unremarkable. IMPRESSION: 1. No acute intracranial findings. /Dix
--- NOTE | 2024-11-10 13:15 | NUR ---
PATIENT CARE ASSUMED AT THIS TIME.
[2024-11-10 13:27] VITALS: BP 122/90; PULSE 56; RESP 17; TEMP 98.2; O2SAT 99
[2024-11-10] MEDS: 0.9%NACL 1000ML 1,000 ML IV STA (13:55)
== END 2024-11-10 14:42 | disposition home or self-care (01) ==
LOC: EDH 11:23
DX: R51.9 Headache, unspecified (principal); Z79.899 Other long term (current) drug therapy; Z85.528 Personal history of other malignant neoplasm of kidney; Z90.49 Acquired absence of other specified parts of digestive tract
CPT/HCPCS: 99284; 96374; 96375; 70450; J1885; J1200; J7030; J2405; J2765